=== PATIENT | female | born 1940 | race Caucasian/White ===

== ENCOUNTER 2020-01-04 09:13 | Observation (INO) | payer MEDICARE, OTHER ==
[2020-01-04] VITALS (10 sets, daily range): BP systolic 125–160; BP diastolic 38–62
[~2020-01-04] VITALS: Ht 149.9 cm; Wt 95.3 kg
[~2020-01-04 09:13] MED LIST: ALTACE10 MG PO; APAP650 PO; ASPIR 8181 MG PO; BENTYL 20 MG TA20 M1 PO; CALCIUM 600 +1 EAC1 PO; CRANBERRY425 MG PO; FENOFIBRATE160 MG PO; FLONASE 0.05%50 MCG NASAL; LASIX 40 MG TAB40 M2 PO; LOMOTIL TABLET1 EACH PO; LOPRESSOR50 PO; MURO-128 OPHTH3.5 G1 OP; NEXIUM40 MG PO; NITROGLYCERIN0.4 MG SUBLING; NORCO 5-325 TA1 EAC2 PO; NYAMYC15 GM TOP; PLAVIX 75 MG TA75 M1 PO; REFRESH TEARS15 ML OP; VENTOLIN HFA 1818 GM INH; VITAMIN D3400 UNIT PO; VYTORIN 10-201 EACH PO; [UNRECOGNIZED DRUG - OTHER] PO
[2020-01-04 09:51] LABS: HEMOGLOBIN 13.2 gm/dL (12.0-15.0); MCHC 32.2 g/dL (28.0-37.0); MCV 83.8 fL (80.0-100.0); MPV 8.6 fl. (7.2-11.1); RBC 4.9 mil/uL (4.20-5.00); RDW-CV 16.3 % (10.5-14.5); WBC 12.1 thou/uL (4.0-11.0)
[2020-01-04 10:21] LABS: ANION GAP 5 mmol/L (7-16); BUN 35 mg/dL (7-18); CALCIUM 8.8 mg/dL (8.5-10.1); CHLORIDE 100 mmol/L (98-107); CO2 31 mmol/L (21-32); CREATININE 1.2 mg/dL (0.6-1.3); GLUCOSE 110 mg/dL (70-99); POTASSIUM 4.2 mmol/L (3.5-5.1); SODIUM 136 mmol/L (136-145)
[2020-01-04 10:28] LABS: ALBUMIN 3.5 g/dL (3.4-5.0); ALKALINE PHOSPHATASE 104 U/L (46-116); CHOLESTEROL 169 mg/dL (<200); HDL CHOLESTEROL 50 mg/dL (>40); LDL CHOLESTEROL 93 mg/dL (<100); SGOT 27 U/L (15-37); SGPT 33 U/L (30-65); TC:HDL 3.4 Ratio (Not establshd); TOTAL BILIRUBIN 0.4 mg/dL (<0.1-1.0); TOTAL PROTEIN 7.5 g/dL (6.4-8.2); TRIGLYCERIDE 132 mg/dL (<150); VLDL 26 mg/dL (<40)
[2020-01-04 10:34] LABS: SERUM ASSESSMENT Clear
[2020-01-04 11:08] LABS: APTT 28.5 Seconds (25.0-31.3); INR 0.9; PROTIME 9.8 Seconds (9.20-11.50)
--- NOTE | 2020-01-04 17:26 | NUR ---
AIDEN RESTING IN BED. UP AD VAUGHN IN ROOM. TR BAND WITH 6 ML AIR REMAINING. 2+ PULSES. AOX4. VSS. EXPECTED DC TOMORROW.
[2020-01-04] MEDS ORDERED: LOPRESSOR50 MG PO (17:52)
[2020-01-04] MEDS ORDERED: TRIAMTERENE/HCT1 CA1 PO (17:53)
[2020-01-04] MEDS ORDERED: CRESTOR5 MG PO (17:54)
[2020-01-04] MEDS ORDERED: DULOXETINE HCL60 MG PO (17:55)
[2020-01-04] MEDS ORDERED: OXYBUTYNIN 5 MG5 M1 PO (17:56)
[2020-01-04] MEDS ORDERED: COQ-10100 MG PO (17:56)
[2020-01-05] VITALS: BP 146/62
[2020-01-05 04:00] VITALS: BP 133/59
[2020-01-05 04:04] LABS: HEMATOCRIT 34.8 % (37.0-47.0); HEMOGLOBIN 11.4 gm/dL (12.0-15.0); MCH 27.3 pg (26.0-34.0); MCHC 32.7 g/dL (28.0-37.0); MCV 83.4 fL (80.0-100.0); MPV 8.9 fl. (7.2-11.1); RBC 4.17 mil/uL (4.20-5.00); RDW-CV 16.4 % (10.5-14.5); WBC 8.5 thou/uL (4.0-11.0)
[2020-01-05 04:20] LABS: ALBUMIN 2.8 g/dL (3.4-5.0); CALCIUM 8.3 mg/dL (8.5-10.1); POTASSIUM 4.1 mmol/L (3.5-5.1); TOTAL BILIRUBIN 0.3 mg/dL (<0.1-1.0); TOTAL PROTEIN 5.9 g/dL (6.4-8.2); TROPONIN-I LEVEL 0.18 ng/mL (<0.06)
[2020-01-05 08:05] VITALS: BP 160/58
--- NOTE | 2020-01-05 08:58 | EKG ---
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
--- NOTE | 2020-01-05 08:59 | EKG ---
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
--- NOTE | 2020-01-05 09:06 | EKG ---
[place] [address] ELECTROCARDIOGRAM REPORT Name: PACO YHE Room: [address] M.R.#: [id number] Admission: 01/04/20 Attend Phys: Desirae Bryant Discharge: Date of : 40 Date of Service: 01/05/20 0704 Report #: [id number] THIS REPORT FOR: //name// [facility] Test Date: 2020-01-05 Test Time: 07:04:24 Pat Name: PACO YEH Department: Room: [facility] Gender: F Booky: LINDA : 1940 Requested By: Ady Elizabeth Order Number: [id number] Stella MD: Lucho Mendez Measurements Intervals [place] Rate: 86 P: 59 NV: 209 QRS: 14 QRSD: 96 T: 113 QT: 352 QTc: 421 Interpretive Statements Sinus rhythm Compared to ECG 01/04/2020 13:21:02 First degree AV block no longer present Electronically Signed On 01-05-2020 9:05:40 CDT by Lucho Menedz [email or web address] <ELECTRONICALLY SIGNED> By: Lucho Mendez MD, FAC 01/05/2005 3 3 Lucho Mendez MD, [facility] /EPI
--- NOTE | 2020-01-05 11:58 | CARD ---
[address] [address] CARDIAC CATH REPORT Name: YEHPACO J Room: [address] Sally MChristina#: [id number] Admission: 01/04/20 Attend Phys: Ady Elizabeth MD, Discharge: Date of : 40 Report #: [id number] THIS REPORT FOR: //name// cc: Reyna Irizarry MD, Cora A. MD ~ APPROVED REPORT Study performed: 01/04/2020 10:30:12 Patient Details Patient Status: Out-Patient Room #: The patient is a 79 year-old female Event Personnel Valentin England Reeves, Adam RTR Monitor, David Fernandez RN RN, Ady Elizabeth Die Stamping Press Operator, Bruce Fields COUNTER CUTTER Monitor, Ady Elizabeth Recruitment Director Procedures Performed Left Heart Cath w/or w/o Coronaries [id number] [facility] Place w/wo Plasty Single RCA 326032 Atherectomy w/wo Plasty Sgl RCA 5421514 ATHSINGLE Indication Dyspnea, Positive stress test Risk Factors Obesity, Hypercholesterolemia, Hypertension, Diabetes Previous Procedures/Diagnoses Previous PCI Admission/Lab Medications/Medications given during procedure Fentanyl IV 25 mcg, Midazolam (Versed) IV 1 mg, Lidocaine Subcut 4 ml, Nitroglycerin IA 200 mcg, Verapamil IA 2.5 mg, Heparin IV 6000 units, Angiomax IV 14 ml, Angiomax Drip IV 23.75 ml per hr, Plavix PO 300 mg, Fentanyl IV 50 mcg Procedure Narrative The patient was brought electively to the Cardiac Catheterization Laboratory and was prepped and draped in a sterile manner. The right wrist was infiltrated with 2% Lidocaine subcutaneous anesthesia. A Slender Glidesheath sheath was inserted into the right radial artery. Coronary angiography was performed using coronary diagnostic catheters. The right coronary system [place] [address] CARDIAC CATH REPORT Name: PACO YEH Room: [address] M.RKemar#: [id number] Admission: 01/04/20 Attend Phys: Ady Elizabeth MD, Discharge: Date of : 40 Report #: [id number] a JR4 6fr Diagnostic catheter. The left coronary system was accessed and visualized with a JL 3.5 6fr Diagnostic catheter. The left ventricle was accessed and visualized with a Pig[address] St 6 Fr Diagnostic catheter. The patient tolerated the procedure well and there were no complications associated with the procedure. There was no hematoma. Intraoperative Conscious Sedation Sedation start time: 1111 Case end Time: 1249 Fentanyl 100 mcg Versed 2 mg Fluoro Time: 20.1 minutes Dose: DAP 909204 cGycm2 2426.95 mGy Contrast Type and Amount: Visipaque 180 ml Diagnostic Cath Left Main 0% narrowing LAD 30% proximal and mid LAD narrowing with 50% distal narrowing Circumflex 30% mid vessel narrowing Right Coronary Dominant vessel with 30% proximal narrowing 80% focal mid right coronary in-stent restenosis and 30% distal narrowing Left Ventriculography Left Ventriculography was not performed. Hemodynamics The aortic pressure is 158/69 mmHg with a mean of 107 mmHg. The left ventricular pressure is 170/15 mmHg with a mean of mmHg. The left ventricular end diastolic pressure is 22 mmHg. There was no gradient across the aortic valve upon pullback. PCI Technique Lesion Anticoagulation was achieved with Angiomax. Patient was preloaded with Angiomax IV 14 ml. Percutaneous coronary intervention was performed on the mid right coronary artery. The lesion stenosis prior to intervention was 80% with RUIZ 3 flow. A 6F JR 4.0 Guide Catheter was used to engage the Right ostium. A BMW 190cm Interventional Guidewire was used to cross the lesion. BALLOON DILATION A Balloon catheter NC Euphora 2.5x12 was inserted and inflated up to 20.00atm for 17seconds. Additional Inflation: 24.00atm for 16seconds. Additional Inflation: 18.00atm for 22seconds. A Cutting Balloon Catheter Angiosculpt PTCA 2.5 x 10mm was [place] [address] CARDIAC CATH REPORT Name: PACO YEH Room: [address] MKemarRKemar#: [id number] Admission: 01/04/20 Attend Phys: Ady Elizabeth MD, Discharge: Date of : 40 Report #: [id number] 18 jessica for 22 seconds. Additional Infliation: 20 jessica for 19 seconds. Additional Inflation: 22 jessica for 23 seconds.+ STENT DEPLOYMENT A drug-eluting stent Federico RX Stent 2.17B54eo was inserted and inflated up to 15.00atm for 17seconds. Additional Inflation: 17.00atm for 16seconds. Additional Inflation: 18.00atm for 15seconds. Final angiography reveals 10 % stenosis with RUIZ 3 flow. Conclusion 1. Significant coronary artery disease characterized by the following: A 30% proximal and mid LAD narrowings with 50% distal narrowing B 30% mid circumflex narrowing C dominant right coronary artery with 30% tubular proximal narrowing 80% focal mid right coronary in-stent restenosis and 30% distal narrowing 2. Moderate systemic systolic hypertension with moderate elevation of left ventricular end-diastolic pressure at rest 3. Successful angioplasty atherotomy/atherectomy and stenting of the mid right coronary artery with 10% residual narrowing following final stent deployment. Recommendations Cardiac Risk Reduction Program Aggressive Medical Therapy Medications Administered Aspirin (any) Clopidogrel Diagnostic Cath Approved by: Ady Elizabeth MD Date/Time: 01/05/2020 11:56:24 <ELECTRONICALLY SIGNED> By: Ady Elizabeth MD, FACC 01/05/20 1157 1157 1157Ady Elizabeth MD, FACC /INF
--- NOTE | 2020-01-05 12:40 | H ---
[place] [address] HISTORY AND PHYSICAL Name: PACO YEH Room: [address] ADM Sally Delbert#: [id number] Admission: 01/04/20 Attend Phys: Ady Elizabeth MD, Discharge: Date of : 40 Report #: [id number] THIS REPORT FOR: //name// cc: Reyna Irizarry MD, Cora A. MD ~ THIS REPORT FOR: //name// CC: Reyna Elizabeth DATE OF SERVICE: 01/04/2020 ADMITTING HISTORY AND PHYSICAL The patient will be admitted 01/04/2020 through outpatient for cardiac catheterization on 01/04/2020. HISTORY OF PRESENT ILLNESS: The patient is a very pleasant 79-year-old female with a history of coronary artery disease, status post multiple prior PCIs. Of late, she has denied pain typical of her prior angina but has noticed some dyspnea with modest activity. She does have obstructive airways disease. She no longer smokes. There is underlying hypertension, hypercholesterolemia, and mild diabetes and weight excess. Recently, she has demonstrated an iron deficiency anemia with no obvious source of loss after thorough investigation. MEDICATIONS: Included acetaminophen, albuterol, alprazolam, Tessalon, cholecalciferol, Bentyl, diphenhydramine, Cymbalta, Nexium, Vytorin, fenofibrate, furosemide, hydrocodone, meclizine, metoprolol, oxybutynin and ramipril and triamterene/hydrochlorothiazide. PAST MEDICAL HISTORY: Remarkable for obstructive airways disease, chronic bronchitis, obesity, type 2 diabetes. SOCIAL HISTORY: She did smoke, but no longer does. REVIEW OF SYSTEMS: Remarkable for the following: PULMONARY: She notes dyspnea on exertion. MUSCULOSKELETAL: There are moderate arthritic complaints. GENERAL: She has chronic weight excess. Remainder unremarkable. PHYSICAL EXAMINATION: GENERAL: Demonstrates [place] [address] HISTORY AND PHYSICAL Name: PACO YEH Room: [address] Sally Mandujano#: [id number] Admission: 01/04/20 Attend Phys: Ady Elizabeth MD, Discharge: Date of : 40 Report #: [id number] VITAL SIGNS: Blood pressure is 150/70, pulse rate is 74, respirations are 18 per minute. NECK: Jugular venous pressure is normal. CHEST: Clear with slightly prolonged expiratory phase. No wheezes are noted. CARDIAC: Reveals normal first and second heart sounds without murmurs or gallops. ABDOMEN: Moderately obese. EXTREMITIES: Without edema with intact femoral, pedal and radial pulses. There are no deformity or arthritic changes. Recent nuclear stress test revealed inducible basilar and mid inferolateral ischemia. IMPRESSION: 1. Coronary artery disease. 2. Abnormal nuclear stress test with inducible basal and lateral ischemia. 3. Status post multiple prior percutaneous coronary interventions. 4. Diabetes. 5. Chronic bronchitis. 6. Hypertension. 7. Exogenous obesity. RECOMMENDATIONS: Given the aforementioned clinical scenario with dyspnea on exertion, abnormal nuclear stress test and known coronary artery disease with multiple risk factors for same, I would recommend proceeding with cardiac catheterization to define the magnitude of coronary artery disease and prospects for therapeutic modification. This has been discussed with the patient. We will plan to proceed with cardiac catheterization on 01/04/2020. <ELECTRONICALLY SIGNED> By: Ady Elizabeth MD, FACC 01/05/20 1240 1510 [id number] Elizabeth MD, FACC /nt
--- NOTE | 2020-01-05 12:41 | D ---
[address] [address] DISCHARGE SUMMARY Name: PACO YEH Room: [address] Sally MChristina#: [id number] Admission: 01/04/20 Attend Phys: Ady Elizabeth MD, Discharge: Date of : 40 Report #: [id number] THIS REPORT FOR: //name// cc: Reyna Irizarry MD, Cora A. MD ~ THIS REPORT FOR: //name// CC: Reyna Elizabeth DATE OF SERVICE: 01/05/2020 FINAL DISCHARGE DIAGNOSES: 1. Abnormal nuclear stress test with inducible inferolateral ischemia. 2. Coronary artery disease. 3. Status post PTCA atherectomy and stenting. 4. Hypertension. 5. Type 2 diabetes. 6. Obesity. 7. Hyperlipoproteinemia. PROCEDURES: On 01/04/2020, left heart catheterization, left ventriculography, selective coronary arteriography, and percutaneous coronary intervention with atherectomy and stenting of the mid right coronary artery. HISTORY AND HOSPITAL COURSE: The patient is a very pleasant 79-year-old female with a history of coronary artery disease and multiple risk factors for coronary artery disease. Recently, she has noted increased dyspnea on exertion and had an abnormal nuclear stress test with inducible inferior ischemia. Given this data, I performed cardiac catheterization on 01/04/2020 from the radial approach. That study demonstrated normal left main coronary artery with mild LAD and circumflex disease with a widely patent proximal/mid LAD stent. There was 80% mid right coronary in-stent restenosis noted. I performed arthrotomy/atherectomy with a 2.5 x 10 AngioSculpt balloon inflated to 18-20 atmospheres with placement of a 2.75 x 12 Federico extended that side with a 10% residual narrowing and RUIZ 3 flow of the distal vessel. The patient did well post-procedurally. Lab on 01/05/2020 revealed sodium 138, potassium 4.1, BUN 25, creatinine 1.0, and glucose 100. White blood cell count 8500, hemoglobin 11.4, hematocrit 34.8, and platelets 257,000. Troponin henry inconsequentially to 0.18. There was good hemostasis at the right [place] [address] DISCHARGE SUMMARY Name: PACO YEH Room: [address] Sally Mandujano#: [id number] Admission: 01/04/20 Attend Phys: Ady Elizabeth MD, Discharge: Date of : 40 Report #: [id number] DISCHARGE MEDICATIONS: The patient was discharged to home on the following medications: Acetaminophen 650 mg q.8 hours p.r.n., calcium carbonate or Caltrate 1200 mg tablet daily, cholecalciferol 2000 units daily, clopidogrel or Plavix 75 mg daily with a 300 mg dose given periprocedurally, cranberry extract 4200 mg daily, dicyclomine 20 mg t.i.d., duloxetine 60 mg daily, Nexium 40 mg daily, fenofibrate 160 mg daily, fluticasone 2 sprays daily, furosemide 40 mg daily, hydrochlorothiazide/triamterene 1 capsule daily, Richey 5/325 one tablet q.4 hours p.r.n., metoprolol tartrate 50 mg with dinner and 100 mg in the morning, ____ 5 mg daily, Crestor 5 mg daily, and Coenzyme Q 100 mg daily. The patient is discharged to home in stable condition with followup in our office to see myself on 02/10/2020 at 0820 hours at the [facility] office. Therefore, the patient is discharged to home in stable condition on the aforementioned medications with followup as described above. <ELECTRONICALLY SIGNED> By: Ady Elizabeth MD, [facility] 01/05/20 1241 0928 [id number] Elizabeth MD, FAC /nt
== END 2020-01-05 11:15 | disposition home or self-care (01) ==
LOC: M.CL 09:13 → M.TBA-CV 13:07 → M.2W 17:19
PROVIDERS: ADMIT Internal Medicine; ATTEND Internal Medicine
DX: I25.10 Atherosclerotic heart disease of native coronary artery without angina pectoris (principal); I10 Essential (primary) hypertension; E78.5 Hyperlipidemia, unspecified; E11.9 Type 2 diabetes mellitus without complications; E66.9 Obesity, unspecified